=== PATIENT | female | born 1940 | race African-American/Black ===

== ENCOUNTER 2018-04-18 07:21 | Emergency (ER) | payer OTHER ==
[~2018-04-18] VITALS: Ht 154.9 cm; Wt 67.0 kg
[2018-04-18 07:23] VITALS: BP 169/84
== END 2018-04-18 09:47 | disposition left against medical advice (07) ==
LOC: ER 07:21
DX: R41.82 Altered mental status, unspecified (principal); Z53.21 Procedure and treatment not carried out due to patient leaving prior to being seen by health care provider